=== PATIENT | female | born 1990 | race Caucasian/White ===

== ENCOUNTER 2016-06-18 08:45 | Emergency (ER) | payer MEDICAID ==
[~2016-06-18] VITALS: Ht 165.1 cm; Wt 59.0 kg
[2016-06-18 08:52] VITALS: BP 109/73
== END 2016-06-18 09:22 | disposition home or self-care (01) ==
LOC: ER 08:47
DX: N76.0 Acute vaginitis (principal)
CPT/HCPCS: 99283; A4606; Z7610